=== PATIENT | female | born 1995 | race Caucasian/White ===

== ENCOUNTER 2023-06-09 15:50 | Outpatient (AMB) | payer OTHER, SELFPAY ==
--- NOTE | 2023-06-09 15:51 | A.OFFPC_ITS ---
Vital Signs 06/09/23 15:54 Height 5 ft 4 in Weight 146 lb BMI 25.1 BP 122/70 Blood Pressure Location Rt brachial Position Sitting Pulse 102 H Pulse Source Pulse Oximeter Pulse Oximetry (%) 99 Oxygen Delivery Method Room Air Intake Visit Reasons: New patient-requesting physical Intake Note: Patient here to establish care and have Physical exam. last pap: 08/2021 due every three years Accompanied by: Self / Same As Patient Is last menstrual period known: No (on IUD) Post menopausal: No Patient : No Allergies No Known Allergies Allergy (Verified 06/09/23 16:39) Medication List - Last Reconciled 06/09/23 by RICHAR Davis-RABIA bupropion HCl XL 300 mg PO DAILY dextroamphetamine sulfate ER 20 mg PO BID spironolactone 50 mg PO DAILY Tobacco use date assessed: 06/09/23 Dental Screening Dental Screen Date: 06/09/23 Did you have a dental visit in the last 12 months?: No Did you have a dental problem in the last 6 months where you did not have access to dental care?: No Was dental information given to patient?: No HPI New patient-requesting physical HPI Details New pt is here for a PE. Will order labs. Pt does not have a obgyn specialist, will refer. She has a Mirena IUD. Pt has a psychiatrist. Pt was on differin due to acne but has not been able to get this for some time, will send. [facility] Family History Other Substance abuse in family Social History Housing: Apartment Patient Tobacco Use Status: Never used Tobacco e-Cigarette/Vaping Use: Never Used service: No Current occupational status: employed Current occupational exposures/hazards: No Cognitive needs: No Hearing needs: No Vision needs: No Questionnaire PHQ-9 Over the last 2 weeks, how often have you been bothered by any of the following problems? 1. Little interest or pleasure in doing things: not at all 2. Feeling down, depressed, or hopeless: not at all 3. Trouble falling or staying asleep, or sleeping too much: several days 4. Feeling tired or having little energy: several days 5. Poor appetite or overeating: not at all 6. Feeling bad about yourself - or that you are a failure or have let yourself or your family down: not at all 7. Trouble concentrating on things, such as reading the newspaper or watching television: several days 8. Moving or speaking so slowly that other people could have noticed. Or the opposite - being so fidgety or restless that you have been moving around a lot more than usual: not at all 9. Thoughts that you would be better off or of hurting yourself in some way: not at all Total score: 3 Depression Screening Interpretation: Negative Depression Screening Done: Yes 88712 - PHQ-9 Billing: Yes Source: Developed by Drs. Anup Duvall, Lynda De León, Tommy Mcelroy and colleagues, with an educational gill from [employer]. Thrive Questionnaire Date Thrive assessed: 06/09/23 I am a: Patient What is your living situation today?: I have a steady place to live Within the past 12 months, did the food you bought not last and you didn't have the money to get more?: Never true Within the past 12 months, did you worry whether your food would run out before you got money to buy more?: Never true Do you have trouble paying for medicines?: No Do you have trouble getting transportation to medical appointments?: No Do you have trouble paying your heating and electricity bill?: No Do you have trouble taking care of your child, family member or friend?: No Do you have trouble with day-to-day activities such as bathing, preparing meals, shopping, managing finances, etc.?: No Are you currently unemployed and looking for a job?: No Are you interested in more education?: No Currently or been in a relationship where the following occur: I choose not to answer this question THRIVE Score: 0 AUDIT C Alcohol Use Questionnaire (AUDIT-C) 1. How often do you have a drink containing alcohol?: Monthly or less 2. How many drinks containing alcohol do you have on a typical day when you are drinking?: 1 or 2 3. How often do you have six or more drinks on one occasion?: Never Total Score: 1 Score Reviewed/Action Taken: No GILBERTO-7 AMB Questionnaire GILBERTO-7 Date GILBERTO - 7 assessed: 06/09/23 Feeling nervous, anxious, or on edge: 0 = Not at all Not being able to stop or control worryin = Not at all Worrying too much about different things: 0 = Not at all Trouble relaxin = Not at all Being so restless that it is hard to sit still: 2 = More than half the days Becoming easily annoyed or irritable: 1 = Several days Feeling afraid as if something awful might happen: 0 = Not at all Total GILBERTO-7 score (0-4 normal; 5-9 mild; 10-14 moderate; 15-21 severe): 3 Source: Developed by Drs. Anup Duvall, Lynda De León, Tommy Mcelroy and colleagues, with an educational gill from [employer]. GILBERTO-7 Assessment Billing GILBERTO-7 Assessment Tool: GILBERTO-7 Assessment 60518 Review of Systems Const Denies chills and Denies fever(s) Eyes Denies blurry vision ENT Denies vertigo, Denies dizziness and Denies sore throat Card Denies chest pain at rest, Denies chest pain with activity, Denies diaphoresis, Denies dyspnea and Denies dyspnea on exertion Resp Denies cough, Denies dyspnea, Denies dyspnea on exertion and Denies wheezing GI Denies abdominal pain, Denies melena, Denies hematochezia, Denies constipation, Denies diarrhea and Denies loose stools Denies hematuria Musc Denies numbness and Denies tingling Skin/Breast Denies lesions Neuro Denies vertigo, Denies dizziness, Denies numbness and Denies tingling Psych Denies anxiety, Denies depression, Denies homicidal ideation, Denies suicidal ideation and Denies other (substance abuse) Aller/Immun Denies wheezing Physical exam (Primary Care) Vital Signs: Last Vital Signs Pulse 102 H 06/09/23 15:54 BP 122/70 06/09/23 15:54 Pulse Ox 99 06/09/23 15:54 Oxygen Delivery Method Room Air 06/09/23 15:54 BMI result Body Mass Index 25.1 Tobacco/Smoking Status: Tobacco use Status Tobacco use date assessed 06/09/23 06/09/23 15:59 Patient Tobacco Use Status Never used Tobacco 06/09/23 15:59 e-Cigarette/Vaping Use Never Used 06/09/23 15:59 PHQ-9: PHQ-9 Score PHQ-9: Total score 3 06/09/23 16:05 Depression Screening Interpretation: Negative Thrive Assessment: Date of Thrive Assessment Date Thrive assessed 06/09/23 06/09/23 16:03 Currently or been in a relationship where the following occur: I choose not to answer this question Const General: cooperative Nutritional Appearance: well nourished Orientation/consciousness: patient oriented x3 HENMT Head: Yes normal to inspection, Yes normocephalic and Yes atraumatic Ears: TM's normal bilaterally Eyes General: appearance normal, both eyes and all related structures Alignment and Position: alignment normal and position normal Neck Neck: Yes normal visual inspection and Yes no lymphadenopathy Thyroid: Thyroid normal Resp Effort & Inspection: normal respiratory effort Auscultation: clear to auscultation bilaterally Cardio Rate: regular rate Rhythm: regular rhythm Heart sounds: S1 normal heart sound present, S2 normal heart sound present and no murmurs GI Palpation (GI): Soft to palpation and nontender Auscultation: normal bowel sounds Skin Rashes: no rashes Neuro General: patient oriented x3, moves all extremities, no focal motor deficits and deep tendon reflexes 2+ bilaterally Romberg Test: Negative Psych Appearance: grossly normal Mental Status: mental status grossly normal Speech and movement: Normal speech and movement present Affect: normal affect Attitude: cooperative Thought process: Normal thought process present Thought content: Normal thought content present Insight: Good insight present (Psych) Judgement: Good judgement present (Psych) Assessment and Plan Assessment & Plan (1) Physical exam: Code(s): Z00.00 - Encounter for general adult medical examination without abnormal findings Plan: Labs ordered (2) Screening for cervical cancer: Code(s): Z12.4 - Encounter for screening for malignant neoplasm of cervix Plan: Referred to obgyn specialist (3) Acne: Code(s): L70.9 - Acne, unspecified Plan: differine sent Plan The patient agreed to the use of a medical authorization specialist for this encounter. Scribed for ROJELIO Galvan by Leti Paz medical authorization specialist, on 06/09/2023 at 16:05 EST. Orders: Orders Complete Blood Count Auto Diff Today Z00.00 - Encounter for general adult medical examination without abnormal findings Comprehensive [place]. 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
[2023-06-09 15:54] VITALS: BP 122/70; PULSE 102; O2SAT 99; BMI 25.1
== END 2023-06-09 16:22 | disposition home or self-care (01) ==
LOC: HO.HMGC 15:50
PROVIDERS: PCP Nurse Practitioner Family; Visit Provider Nurse Practitioner Family
DX: Z00.00 Encounter for general adult medical examination without abnormal findings (principal); Z12.4 Encounter for screening for malignant neoplasm of cervix; L70.9 Acne, unspecified
CPT/HCPCS: 99385

== ENCOUNTER 2024-07-01 14:56 | Outpatient (AMB) | payer OTHER, SELFPAY ==
[2024-07-01 14:59] VITALS: BP 108/70; PULSE 80; RESP 18; TEMP 37.2; O2SAT 100; BMI 22.5
--- NOTE | 2024-07-01 14:59 | MHC.PC.OV ---
Vital Signs 07/01/24 14:59 Height 5 ft 4 in Weight 131 lb BMI 22.5 BP 108/70 Blood Pressure Location Rt brachial Position Sitting Respiration 18 Pulse 80 Pulse Source Pulse Oximeter Temp 98.9 F Temp Source Oral Pulse Oximetry (%) 100 Oxygen Delivery Method Room Air Intake Visit Reasons: Annual PE Intake Note: Pt is here today for PE. Allergies No Known Allergies Allergy (Verified 07/01/24 15:30) Medication List - Last Reconciled 07/01/24 by ROJELIO Davis adapalene 0.1% (Differin) 1 appl topical BEDTIME bupropion HCl XL 300 mg PO DAILY lisdexamfetamine (Vyvanse) 60 mg PO DAILY spironolactone 100 mg PO DAILY Tobacco use date assessed: 07/01/24 Dental Screening Dental Screen Date: 07/01/24 Did you have a dental visit in the last 12 months?: Yes Did you have a dental problem in the last 6 months where you did not have access to dental care?: No Was dental information given to patient?: Patient has dentist [facility] Surgical History No pertinent past surgical history Family History Other Substance abuse in family Social History Housing: Apartment Patient Tobacco Use Status: Never used Tobacco e-Cigarette/Vaping Use: Never Used service: No Current occupational status: employed Current occupational exposures/hazards: No Cognitive needs: No Hearing needs: No Vision needs: No Questionnaire PHQ-9 Over the last 2 weeks, how often have you been bothered by any of the following problems? 1. Little interest or pleasure in doing things: not at all 2. Feeling down, depressed, or hopeless: not at all 3. Trouble falling or staying asleep, or sleeping too much: several days 4. Feeling tired or having little energy: several days 5. Poor appetite or overeating: not at all 6. Feeling bad about yourself - or that you are a failure or have let yourself or your family down: not at all 7. Trouble concentrating on things, such as reading the newspaper or watching television: several days 8. Moving or speaking so slowly that other people could have noticed. Or the opposite - being so fidgety or restless that you have been moving around a lot more than usual: not at all 9. Thoughts that you would be better off or of hurting yourself in some way: not at all Total score: 3 Depression Screening Interpretation: Negative Depression Screening Done: Yes 58596 - PHQ-9 Billing: Yes Source: Developed by Drs. Anup Duvall, Lynda De León, Tommy Mcelroy and colleagues, with an educational gill from [employer]. Thrive Questionnaire Date Thrive assessed: 07/01/24 I am a: Patient What is your living situation today?: I have a steady place to live Within the past 12 months, did the food you bought not last and you didn't have the money to get more?: Never true Within the past 12 months, did you worry whether your food would run out before you got money to buy more?: Never true Do you have trouble paying for medicines?: No Do you have trouble getting transportation to medical appointments?: No Do you have trouble paying your heating and electricity bill?: No Do you have trouble taking care of your child, family member or friend?: No Do you have trouble with day-to-day activities such as bathing, preparing meals, shopping, managing finances, etc.?: No Are you currently unemployed and looking for a job?: No Are you interested in more education?: No Please select the resources that you would like help with: None Currently or been in a relationship where the following occur: No concerns reported THRIVE Score: 0 AUDIT C Alcohol Use Questionnaire (AUDIT-C) 1. How often do you have a drink containing alcohol?: Monthly or less 2. How many drinks containing alcohol do you have on a typical day when you are drinking?: 1 or 2 3. How often do you have six or more drinks on one occasion?: Less than monthly Total Score: 2 Score Reviewed/Action Taken: Yes GILBERTO-7 AMB Questionnaire GILBERTO-7 Date GILBERTO - 7 assessed: 07/01/24 Feeling nervous, anxious, or on edge: 1 = Several days Not being able to stop or control worryin = Not at all Worrying too much about different things: 0 = Not at all Trouble relaxin = Several days Being so restless that it is hard to sit still: 1 = Several days Becoming easily annoyed or irritable: 0 = Not at all Feeling afraid as if something awful might happen: 0 = Not at all Total GILBERTO-7 score (0-4 normal; 5-9 mild; 10-14 moderate; 15-21 severe): 3 Source: Developed by Drs. Anup Duvall, Lynda De León, Tommy Mcelroy and colleagues, with an educational gill from [employer]. GILBERTO-7 Assessment Billing GILBERTO-7 Assessment Tool: GILBERTO-7 Assessment 85185 Physical exam (Primary Care) Vital Signs: Last Vital Signs Temp 98.9 F 07/01/24 14:59 Pulse 80 07/01/24 14:59 Resp 18 07/01/24 14:59 BP 108/70 07/01/24 14:59 Pulse Ox 100 07/01/24 14:59 Oxygen Delivery Method Room Air 07/01/24 14:59 BMI result Body Mass Index 22.5 Tobacco/Smoking Status: Tobacco use Status Tobacco use date assessed 07/01/24 07/01/24 15:06 Patient Tobacco Use Status Never used Tobacco 07/01/24 15:06 e-Cigarette/Vaping Use Never Used 07/01/24 15:06 PHQ-9: PHQ-9 Score PHQ-9: Total score 3 07/01/24 15:06 Depression Screening Interpretation: Negative Thrive Assessment: Date of Thrive Assessment Date Thrive assessed 07/01/24 07/01/24 15:06 Currently or been in a relationship where the following occur: No concerns reported Coding Level of Care Code Est Pt Prev Care 18-39y(52730) Diagnoses Physical exam Z00.00 Screening for cervical cancer Z12.4 Family history of autoimmune disorder Z83.2 Joint pain M25.50 Additional Codes GILBERTO-7 Assessment Billing - GILBERTO-7 Assessment Tool: GILBERTO-7 Assessment 78409 ([id number]) PHQ-9 - 46530 - PHQ-9 Billing: Yes ([id number]) Assessment & Plan Assessment & Plan (1) Physical exam: Code(s): Z00.00 - Encounter for general adult medical examination without abnormal findings Category: Medical (2) Screening for cervical cancer: Code(s): Z12.4 - Encounter for screening for malignant neoplasm of cervix Category: Medical (3) Family history of autoimmune disorder: Code(s): Z83.2 - Family history of diseases of the blood and blood-forming organs and certain disorders involving the immune mechanism Category: Medical (4) Joint pain: Code(s): M25.50 - Pain in unspecified joint Category: Medical Plan . Orders: Orders UA CC w/rflx Micro + Cult Today Z00.00 - Encounter for general adult medical examination without abnormal findings JUVENTINO Reflex Titer and Pattern Today Z83.2 - Family history of diseases of the blood and blood-forming organs and certain disorders involving the immune mechanism Anti DNA DS Antibody Today Z83.2 - Family history of diseases of the blood and blood-forming organs and certain disorders involving the immune mechanism C Reactive Protein Today Z83.2 - Family history of diseases of the blood and blood-forming organs and certain disorders involving the immune mechanism Complete Blood Count Auto Diff Today Z00.00 - Encounter for general adult medical examination without abnormal findings Comprehensive [place]. Panel Fast Today Z00.00 - Encounter for general adult medical examination without abnormal findings TSH reflex Free T4 Today Z00.00 - Encounter for general adult medical examination without abnormal findings Lipid Panel Today Z00.00 - Encounter for general adult medical examination without abnormal findings DNA Double Stranded-Crithidia Today Z83.2 - Family history of diseases of the blood and blood-forming organs and certain disorders involving the immune mechanism Sjogren's Antibodies Today Z83.2 - Family history of diseases of the blood and blood-forming organs and certain disorders involving the immune mechanism Thyroid Peroxidase Antibodies Today Z83.2 - Family history of diseases of the blood and blood-forming organs and certain disorders involving the immune mechanism Erythrocyte Sedimentation Rate Today Z83.2 - Family history of diseases of the blood and blood-forming organs and certain disorders involving the immune mechanism Tick-borne Disease Molecular Today M25.50 - Pain in unspecified joint 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
== END 2024-07-01 15:35 | disposition home or self-care (01) ==
LOC: HO.HMCC 14:56
PROVIDERS: PCP Nurse Practitioner Family; Visit Provider Nurse Practitioner Family
DX: Z00.00 Encounter for general adult medical examination without abnormal findings (principal); Z12.4 Encounter for screening for malignant neoplasm of cervix; Z83.2 Family history of diseases of the blood and blood-forming organs and certain disorders involving the immune mechanism; M25.50 Pain in unspecified joint

== ENCOUNTER → 2024-07-01 14:56 | Outpatient (BNVA) | payer OTHER, SELFPAY | PROVIDERS: PCP Nurse Practitioner Family; Visit Provider Nurse Practitioner Family | DX: Z00.00 Encounter for general adult medical examination without abnormal findings (principal); M25.50 Pain in unspecified joint; Z83.2 Family history of diseases of the blood and blood-forming organs and certain disorders involving the immune mechanism | CPT/HCPCS: 96127 ==

== ENCOUNTER 2024-07-02 07:35 | Outpatient (REF) | payer OTHER, SELFPAY ==
[2024-07-02 10:01] LABS: Appearance Urine Clear; Color Urine Yellow; Glucose Urine UA Negative (Negative); Leukocyte Esterase Urine Negative (Negative); Nitrite Urine Negative (Negative); PH 7.5 (5.0-9.0); Specific Gravity - Urine <= 1.005 (1.005-1.025); Urine Blood Negative (Negative); Urine Ketones Negative (Negative); Urine Protein Negative (Neg-Trace)
[2024-07-02 10:17] LABS: MANUAL DIFF FLAG NO
[2024-07-02 10:25] LABS: Basophils Absolute Auto 0.1 X10*3/uL (0.0-0.2); Eosinophils Absolute Auto 0.1 X10*3/uL (0.0-0.4); Eosinophils Percent Auto 1.7 % (0-4); Hematocrit 37.3 % (37.0-47.0); Hemoglobin 12.4 g/dl (12.0-16.0); Imm Gran Abs Auto 0.02 X10*3/uL (0.00-0.03); Imm Gran Pct Auto 0.4 % (0.0-0.4); Lymphocytes Absolute Auto 1.3 X10*3/uL (1.2-4.9); Lymphocytes Percent Auto 26.7 % (20-40); Mean Corpuscular HGB Conc 33.2 g/dl (31.0-35.0); Mean Corpuscular Hemoglobin 31.4 pg (27.0-33.0); Mean Corpuscular Volume 94.4 fL (80.0-98.0); Mean Platelet Volume 9.8 fL (9.4-12.3); Monocytes Absolute Auto 0.4 X10*3/uL (0.1-1.2); Monocytes Percent Auto 7.9 % (2-11); Neutrophils Percent Auto 62.3 % (45-73); Platelet Count 290 X10*3/uL (160-400); Red Blood Count 3.95 X10*6/uL (4.20-5.50); Red Cell Distribution Width 11.7 % (11.0-16.0); White Blood Count 4.8 X10*3/uL (4.8-10.8)
[2024-07-02 11:35] LABS: Alanine Aminotransferase 23 U/L (0-31); Albumin Level 4.4 g/dL (3.5-5.0); Alkaline Phosphatase 57 U/L (39-117); Anion Gap 12 (12-20); Aspartate Amino Transferase 20 U/L (5-31); Bilirubin Total 0.6 mg/dL (0.0-1.0); Blood Urea Nitrogen 18 mg/dL (9-16); C Reactive Protein < 0.04 mg/dL (< or = 0.50); Calcium 9.4 mg/dL (8.4-10.2); Carbon Dioxide 25 mmol/L (22-29); Chloride 103 mmol/L (96-108); Cholesterol 186 mg/dL (<200); Erythrocyte Sedimentation Rate 5 MM/HR (0-20); Estimated Glomerular Filt Rate > 60; Glucose Fasting 83 mg/dL (60-99); HDL Cholesterol 69 mg/dL (>40); LDL Cholesterol Calculated 108 mg/dL (<100); Sodium 136 mmol/L (135-145); TSH reflex Free T4 1.37 uIU/mL (0.32-4.0); Triglycerides 46 mg/dL (<150)
[2024-07-03 14:43] LABS: A. Phagocytphilium DNA,RT-PCR NOT DETECTED (NOT DETECTED); Babesia Microti DNA, RT-PCR NOT DETECTED (NOT DETECTED); Borrelia Miyamotoi,DNA RT-PCR NOT DETECTED (NOT DETECTED); E.Chaffeensis DNA RT-PCR NOT DETECTED (NOT DETECTED); Lyme(Borrelia ssp)DNA RT-PCR NOT DETECTED (NOT DETECTED)
[2024-07-05 22:28] LABS: Anti DNA DS Antibody <1 IU/mL; Antibody to SS-A Antigen <1.0 NEG AI (<1.0 NEG); Antibody to SS-B Antigen <1.0 NEG AI (<1.0 NEG)
[2024-07-05 23:48] LABS: Thyroid Peroxidase Antibodies <1 IU/mL (<9)
[2024-07-08 09:09] LABS: DNAds, Crithidia Antibody Negative (Negative)
[2024-07-08 14:50] LABS: ANA Pattern 2 Nuclear, Homogeneous; Anti Nuclear Antibody Pattern Nuclear, Speckled; Anti Nuclear Antibody Screen POSITIVE (NEGATIVE)
== END 2024-07-02 07:36 | disposition home or self-care (01) ==
LOC: HO.HMGCLDS 07:35
PROVIDERS: PCP Nurse Practitioner Family; Visit Provider Nurse Practitioner Family
DX: Z00.00 Encounter for general adult medical examination without abnormal findings (principal); Z83.2 Family history of diseases of the blood and blood-forming organs and certain disorders involving the immune mechanism; M25.50 Pain in unspecified joint
CPT/HCPCS: 36415; 80053; 80061; 81003; 84443; 85025; 85652; 86038; 86039; 86140; 86225; 86235; 86255; 86376; 87468; 87469; 87478; 87484; 87798

== ENCOUNTER 2025-01-12 07:04 | Outpatient (AMB) | payer OTHER, SELFPAY ==
--- OUTSIDE RECORDS SUMMARY | 2025-01-12 07:07 | XMS_ITS ---
[facility] Name [facility] Organization Unknown Encounters Encounter Type Encounter Reason Primary Diagnosis Location Date Ambulatory [facility] Care Team Organization Name Specialty Phone Email Start Date End [facility]
--- NOTE | 2025-01-12 07:45 | MHC.PC.OV ---
Intake Visit Reasons: Follow up Allergies No Known Allergies Allergy (Verified 01/12/25 07:45) Medication List - Last Reconciled 01/12/25 by RICHAR Davis- adapalene 0.1% (Differin) 1 appl topical BEDTIME bupropion HCl XL 300 mg PO DAILY lisdexamfetamine (Vyvanse) 60 mg PO DAILY prednisone 50 mg PO DAILY 5 days spironolactone 100 mg PO DAILY Tobacco use date assessed: 07/01/24 Dental Screening Dental Screen Date: 07/01/24 HPI Follow up HPI Details Chief Complaint The patient presents with intermittent dysphagia and severe neck pain, primarily on the right side. History of Present Illness The patient is a 29 year old individual presenting for a telehealth visit for intermittent dysphagia with severe right-sided neck pain. Episodes can last from a minimum of one hour to as long as 12 hours. The patient has previously sought care at an urgent care for this complaint and was treated with prednisone, which was helpful. The patient also reports a sore throat on the right side in the lower thyroid region concurrent with the dysphagia symptoms. The patient has a personal and family history of autoimmune disease and was recently evaluated by a clinical director, who suggested a neurology referral. The patient denies any shortness of breath or chest pain. Social History Health Maintenance Review of Systems - HEENT: Reports intermittent dysphagia and a sore throat on the right side. - Neck: Reports severe pain, especially on the right side. - Cardiovascular: Denies chest pain. - Respiratory: Denies shortness of breath. Physical Exam thyroid appears enlarged Results Plan 1. Intermittent Dysphagia And Neck Pain The patient experiences intermittent dysphagia and severe right-sided neck pain, with episodes lasting from one to 12 hours. A past course of prednisone was effective, suggesting a possible inflammatory etiology. Visual assessment suggests a possible enlarged thyroid. The plan is to prescribe prednisone for use as needed during acute episodes, and to order a modified barium swallow and a thyroid ultrasound for further evaluation. 2. Possible Autoimmune Disorder The patient has a personal and family history of autoimmune disease and was recently seen by a clinical director who recommended a neurology referral. The plan includes obtaining records from the rheumatology consultation to guide further management. Discussion Notes I discussed my assessment with the patient concerning the intermittent dysphagia and neck pain. I explained that I will prescribe prednisone for acute episodes, as it has helped in the past. I also informed the patient of the plan to order a modified barium swallow and a thyroid ultrasound to investigate the cause, noting the thyroid appeared enlarged on video. We discussed the patient's recent rheumatology visit and the plan to obtain those records, particularly given the family history of autoimmune conditions. Patient Instructions - A prescription for prednisone will be provided for you to use in case of a severe episode. - You will be scheduled for a modified barium swallow to check your swallowing. - An ultrasound of your thyroid will also be scheduled. - My office will request the notes from your recent visit with the clinical director. [facility] Medical History Basal cell carcinoma (BCC) in situ of skin Surgical History No pertinent past surgical history Family History Other Substance abuse in family Social History Housing: Apartment Patient Tobacco Use Status: Never used Tobacco e-Cigarette/Vaping Use: Never Used service: No Current occupational status: employed Current occupational exposures/hazards: No Cognitive needs: No Hearing needs: No Vision needs: No Questionnaire Thrive Questionnaire Date Thrive assessed: 07/01/24 I am a: Patient What is your living situation today?: I have a steady place to live Within the past 12 months, did the food you bought not last and you didn't have the money to get more?: Never true Within the past 12 months, did you worry whether your food would run out before you got money to buy more?: Never true Do you have trouble paying for medicines?: No Do you have trouble getting transportation to medical appointments?: No Do you have trouble paying your heating and electricity bill?: No Do you have trouble taking care of your child, family member or friend?: No Do you have trouble with day-to-day activities such as bathing, preparing meals, shopping, managing finances, etc.?: No Are you currently unemployed and looking for a job?: No Are you interested in more education?: No Please select the resources that you would like help with: None Currently or been in a relationship where the following occur: No concerns reported THRIVE Score: 0 GILBERTO-7 AMB Questionnaire GILBERTO-7 Date GILBERTO - 7 assessed: 07/01/24 Source: Developed by Drs. Anup Duvall, Lynda De León, Tommy Mcelroy and colleagues, with an educational gill from [employer]. Physical exam (Primary Care) Tobacco/Smoking Status: Tobacco use Status Tobacco use date assessed 07/01/24 07/01/24 15:06 Patient Tobacco Use Status Never used Tobacco 07/01/24 15:06 e-Cigarette/Vaping Use Never Used 07/01/24 15:06 Thrive Assessment: Date of Thrive Assessment Date Thrive assessed 07/01/24 07/01/24 15:06 Currently or been in a relationship where the following occur: No concerns reported Telehealth Telehealth Telehealth Platform: [facility] [place] Location of provider rendering services: practice address Location of patient: address on file Patient Identification confirmed using: Name, : Yes Telehealth method: video Patient verbally consented to treatment: Yes Patient verbally consented to billing insurance company: Yes Patient informed of any privacy concerns related to visit: Yes Minutes spent on Phone/Video with Pt.: 13 Coding Level of Care Code Tele Est Pt Level 3 (47097) Diagnoses Thyroid enlarged E04.9 Dysphagia R13.10 Family history of autoimmune disorder Z83.2 JUVENTINO positive R76.8 Joint pain M25.50 Assessment & Plan Assessment & Plan (1) Thyroid enlarged: Code(s): E04.9 - Nontoxic goiter, unspecified Category: Medical (2) Dysphagia: Code(s): R13.10 - Dysphagia, unspecified Category: Medical (3) Family history of autoimmune disorder: Code(s): Z83.2 - Family history of diseases of the blood and blood-forming organs and certain disorders involving the immune mechanism Category: Medical (4) JUVENTINO positive: Code(s): R76.8 - Other specified abnormal immunological findings in serum Category: Medical (5) Joint pain: Code(s): M25.50 - Pain in unspecified joint Category: Medical Plan . Orders: Orders FL Modified Barium Swallow Today R13.10 - Dysphagia, unspecified US thyroid Today E04.9 - Nontoxic goiter, unspecified Medications: New prednisone 50 mg PO DAILY 5 tabs 2RF 5 days
== END 2025-01-12 08:15 | disposition home or self-care (01) ==
LOC: HO.HMCC 07:05
PROVIDERS: PCP Nurse Practitioner Family; Visit Provider Nurse Practitioner Family
DX: R13.10 Dysphagia, unspecified (principal); E04.9 Nontoxic goiter, unspecified; Z83.2 Family history of diseases of the blood and blood-forming organs and certain disorders involving the immune mechanism; R76.89 Other specified abnormal immunological findings in serum; M25.50 Pain in unspecified joint

== ENCOUNTER 2025-02-14 13:41 | Outpatient (REF) | payer OTHER, SELFPAY ==
--- NOTE | ~2025-02-14 | FL_ITS ---
EXAMINATION: XR BARIUM SWALLOW CLINICAL INFORMATION: Dysphagia COMPARISON: None available. TECHNIQUE: Routine modified barium swallow was performed with patient standing upright in lateral position under fluoroscopy and oral administration of various consistencies of food coated with barium in presence of speech therapist. FINDINGS: Following oral administration of various consistencies of food coated barium which included thin barium, puree, saltine crackers coated with barium there is normal oral mastication and propagation bolus from the oral cavity through the pharynx into the esophagus. No laryngeal penetration or aspiration seen. No retention of barium seen in the valleculae and piriform sinuses. FLUOROSCOPY TIME: 56 seconds. DOSE AREA PRODUCT: 514.8 uGy-m2 (microgray-meter squared) FL/FL Modified Barium Swallow IMPRESSION: Normal modified barium swallow under fluoroscopy in presence of speech therapist. Recommend correlation with speech therapy report. Electronically signed by: Jose G Knight MD 02/15/2025 07:26 AM SUZANNE
--- NOTE | 2025-02-14 14:41 | MHC.SL.IMP ---
Date of Plan of Treatment: 02/14/25 Onset of Symptoms/Illness: 01/17/25 Date Treatment Started: 02/14/25 Admitting Diagnosis: Dysphagia Primary Speech & Language Diagnosis: R13.10 Dysphagia Reason for Today's Visit: 06881 Modified Barium Swallow Study Pre-evaluation Dietary Consistencies: Regular Pre-evaluation Liquid Consistency: Thin Pre-evaluation Medication Administration: Whole with Liquid Medical History: Modified Barium Swallow Study Fluoroscopic Evaluation of Swallowing Function CPT Code 34117 Evaluation Year: 2024 Reason for Study: R-side throat pain Referring Physician: Edwin Guillory [facility] Evaluating Clinician: Ade Ruggiero MA, CCC-MILLING PLANER OPERATOR Study Number: 1 Patient Name: Luis Aquino Status: Outpatient, Ambulatory Age: 29 Sex: Female Medical History Medical History Basal cell carcinoma (BCC) in situ of skin Surgical History No pertinent past surgical history Current (pre-evaluation) Intake/Diet: Route: PO Diet Grade: Regular Liquid Consistencies: Thin Pre-Study Functional Oral Intake Scale (FOIS): 7- Total oral intake with no restrictions Pain: None reported at time of study SUBJECTIVE: Patient is a 29 year old female reporting severe neck pain primarily on the right side, with episodes lasting 1-12 hours. Patient reports personal and family history of autoimmune disease and was recently evaluated by a power reactor supervisor who had suggested a neurology referral. Patient was prescribed prednisone during these acute episodes, MBSS ordered, as well as thyroid ultrasound. Patient denies coughing or choking with eating. Oral Motor Exam Facial Symmetry: Symmetrical Mouth Occlusion: Normal Oral-Facial Teeth Characteristics: Intact/Normal Oral-Facial Lip Pucker Description: Normal Oral-Facial Smile (Lips) Description: Normal Oral-Facial Puff Cheeks Description: Normal Tongue Size: Normal Tongue Excursion Description: Normal Tongue Range of Movement Description: Normal Tongue Speed of Movement Description: Normal Tongue Strength of Movement (against opposing pressure): Tongue Movement Characteristics: Normal/Absent Is patient able to manage secretions?: Yes Food and Liquid Trials: Oral Impairment: Lip Closure: Did not test Oral Impairment: Tongue Control During Bolus Hold: 0=Cohesive bolus between tongue to palatal seal Oral Impairment: Bolus Preparation/Mastication: 0=Timely and efficient chewing and mashing Oral Impairment: Bolus Transport/Lingual Motion: 0=Brisk tongue motion Oral Impairment: Oral Residue: 1=Trace residue lining oral structures Oral Impairment:Initiation of Pharyngeal Swallow: 1=Bolus head in valleculae Pharyngeal Impairment: Soft Palate Elevation: 0=No bolus between soft palate (SP)/pharyngeal wall (PW) Pharyngeal Impairment: Laryngeal Elevation: 0=Complete superior movement of thyroid cartilage (see description) Pharyngeal Impairment: Anterior Hyoid Excursion: 0=Complete anterior movement Pharyngeal Impairment: Epiglottic Movement: 0=Complete inversion Pharyngeal Impairment: Laryngeal Vestibular Closure:: 0=Complete: no air/contrast in laryngeal vestibule Pharyngeal Impairment: Pharyngeal Stripping Wave: 0=Present: complete Pharyngeal Impairment: Pharyngeal Contraction: Did not test Pharyngeal Impairment: Pharyngoesophageal Segment Openin=Complete distension and complete duration: no obstruction of flow Pharyngeal Impairment: Tongue Base (TB) Retraction: 0=No contrast between tongue base and posterior pharyngeal wall Pharyngeal Impairment: Pharyngeal Residue: 0=Complete pharyngeal clearance Pharyngeal Impairment: Esophageal Clearance Upright Position: Did not test Impressions and Recommendations OBJECTIVE: Time-out: performed at 14:15 Evaluation Start: 14:05; Stop: 14:10 Patient Positioning: Standing Viewing Planes: LATERAL ONLY Contrast: MBSImP? Standardized Protocol using commercially prepared, standardized Barium viscosities, including: Varibar? THIN LIQUID (40% w/v, <15 cps) , Varibar? PUDDING (40% w/v, <8005-8525 cps) , 1/2 Shortbread Cookie (1 x1 x.25 ) MBSImP ID: [id number] [facility]: Lip closure for intraoral bolus containment could not be assessed due to logistical reasons not related to physiologic impairment. Tongue control during bolus hold maintained a cohesive bolus held between tongue to palate seal. Bolus preparation and mastication resulted in timely and efficient chewing and mashing. Bolus transport/lingual motion was with brisk tongue motion. Oral residue was a trace, lining oral structures. Initiation of the pharyngeal swallow occurred when the bolus head was in the valleculae. Soft palate elevation resulted in no bolus between the soft palate and the pharyngeal wall. Laryngeal elevation demonstrated complete superior movement of the thyroid cartilage with complete approximation of the arytenoids to the epiglottic petiole. Anterior hyoid excursion demonstrated complete anterior movement. Epiglottic movement resulted in complete inversion. Laryngeal vestibular closure was complete, as indicated by no air or contrast within the laryngeal vestibule at the height of the swallow. Pharyngeal stripping wave was present and complete. Pharyngeal contraction could not be determined due to logistical reasons not related to physiologic impairment. Pharyngoesophageal segment opening was completely distended for complete duration with no obstruction of bolus flow. Tongue base retraction allowed no contrast between the retracted tongue base and the posterior pharyngeal wall. Pharyngeal residue was not present. There was complete pharyngeal clearance. Esophageal clearance in the upright position could not be assessed due to logistical reasons not related to physiologic impairment. Oral Impairment Score: 1 (absence of score, component 1) Pharyngeal Impairment Score: 0 (absence of score, component 13) Esophageal Impairment Score: --- (absence of score, component 17) Laryngeal Penetration and Aspiration: Neither penetration nor aspiration was observed in today's study with Cookie, Pudding-thick, Thin. ASSESSMENT: This exam was performed by the radiologist and the speech pathologist. Patient was standing for lateral view. She fed herself independently without any difficulty and trialed the following consistencies: -Thin liquid (via individual and rapid cup sips) -Puree (mixture applesauce w/ barium pudding) -Regular solid (shortbread cookies coated w/ barium pudding) Unable to visualize lip closure d/t positioning. Good tongue control and timely AP transit. Mastication was intact, characterized by timely and efficient rotary chewing pattern. Pharyngeal swallow trigger initiated as the bolus head reached the valleculae. Post-swallow, there was trace residue coating the tongue, which cleared on subsequent swallows. No evidence of nasopharyngeal reflux. Complete laryngeal elevation with complete epiglottic inversion and complete laryngeal vestibular closure. No evidence of aspiration or penetration on trials of solids and liquids. Complete pharyngeal clearance seen. Liquid Intake Recommendation: Thin Liquid Intake Strategies: Unrestricted Dietary Recommendations: Regular Medication Administration: Whole with Liquid Please contact the pharmacy regarding appropriate crushable or liquid drug formulations that are available whenever modified delivery is recommended. Compensatory Strategies Recommended: Sitting Upright (90 deg), Small Bites and Sips, Rate of Ingestion Change Recommendation for Speech Therapy: NA:Typical Evaluation Text Comment: Intake Recommendations: Route: PO Diet Grade: Regular Liquid Consistencies: Thin Post-Study Functional Oral Intake Scale (FOIS): 7- Total oral intake with no restrictions Unremarkable exam. No evidence of aspiration or penetration. Good oral and pharyngeal clearance. Therapy Recommendations: Further Speech Intervention is not warranted at this time, as swallow is deemed functional in the oral and pharyngeal phases. Patient to continue workup w/ primary care for complaints of throat pain. Clinician - Supplemental, Miscellaneous Communication: It is important to note MBSS objective studies are snapshots in time and Patient function might vary with factors such as time of day or concomitant medical conditions. For this reason, the final treatment plan for this patient should rest with their medical care team. Additional recommendations should be considered with the totality of the Patient in mind. Thank for the opportunity to participate in the care of this patient. If you have any questions about the content of this report, please contact the [facility] at [facility]. Education: Education regarding findings from today's study and plans for therapy were provided to Patient only through Verbal Instruction. Understanding was expressed by the Patient only. Ocean Forwarder Clinician/Clinical Fellow: No Supervisory Statement: N/A Speech Language Pathologist: Ade Ruggiero M.A., CCC-MILLING PLANER OPERATOR
== END 2025-02-14 13:42 | disposition home or self-care (01) ==
LOC: HO.XRAY 13:41
PROVIDERS: Visit Provider Nurse Practitioner Family
DX: R13.10 Dysphagia, unspecified (principal)
CPT/HCPCS: 74230; 92611

== ENCOUNTER → 2025-02-14 14:00 | Outpatient (BNV) | payer OTHER, SELFPAY | PROVIDERS: Visit Provider Radiology Diagnostic Radiology | DX: R13.10 Dysphagia, unspecified (principal) | CPT/HCPCS: 74230 ==